=== PATIENT | female | born 1945 | race Caucasian/White ===

== ENCOUNTER 2018-05-25 14:13 | Emergency (ER) | payer MEDICARE, MEDICAID ==
[~2018-05-25] VITALS: Ht 170.2 cm; Wt 124.0 kg
[~2018-05-25 14:13] MED LIST: ASPI-10 PO; BENZ1TAB7 PO; COU1T; ESCI20TA PO; GLIM4TAB79 PO; HAL5T PO; HALO5TAB PO; LANS30CA37 PO; PIOG15TA8 PO; PROP20TA6 PO; QUET25TA PO; VALS40TA2 PO
[2018-05-25 14:17] VITALS: BP 191/88
[2018-05-25] MEDS ORDERED: MAGN400O6 PO (14:42)
[2018-05-25] MEDS ORDERED: DOCU-28 PO (14:42)
[2018-05-25] MEDS ORDERED: ASPI-1265 PO (14:42)
[2018-05-25] MEDS ORDERED: OMEP20CA10 PO (14:42)
[2018-05-25] MEDS ORDERED: METF500T PO (14:42)
[2018-05-25] MEDS ORDERED: morphine 4 MG/ML inj SYRINge IV ONE (15:05)
[2018-05-25] MEDS ORDERED: HYDROcodone/acetaminophen 10/325mg tab PO ONE (15:05)
[2018-05-25 15:07] LABS: BASOPHILS # (AUTO) 0.1 X10'3 (0-0.2); BASOPHILS % (AUTO) 0.9 % (0-1); EOSINOPHILS # (AUTO) 0.4 X10'3 (0-0.9); EOSINOPHILS % (AUTO) 5.3 % (0-6); HEMATOCRIT 41.6 % (35.0-45.0); HEMOGLOBIN 13.9 g/dl (12.0-16.0); LYMPHOCYTES # (AUTO) 2.2 X10'3 (1.1-4.8); LYMPHOCYTES % (AUTO) 31.8 % (21-51); MEAN CORPUSCULAR HEMOGLOBIN 29.4 PG (27.0-31.0); MEAN CORPUSCULAR HGB CONC 33.4 % (33.0-36.5); MEAN PLATELET VOLUME 7.7 FL (7.4-10.4); MONOCYTES # (AUTO) 0.6 X10'3 (0-0.9); MONOCYTES % (AUTO) 8.4 % (2-12); NEUTROPHILS # (AUTO) 3.7 X10'3 (1.8-7.7); NEUTROPHILS % (AUTO) 53.6 % (42-75); PLATELET COUNT 259 X10'3 (140-440); RED BLOOD COUNT 4.73 X10'6 (4.20-5.60); RED CELL DISTRIBUTION WIDTH 14.1 % (11.5-14.5); WHITE BLOOD COUNT 6.9 X10'3 (4.5-11.0)
[2018-05-25 15:13] LABS: ALANINE AMINOTRANSFERASE 16 U/L (12-78); ALBUMIN 3.2 G/DL (3.4-5.0); ALBUMIN/GLOBULIN RATIO 0.9 (1.1-1.5); ALKALINE PHOSPHATASE 98 IU/L (46-116); ANION GAP 5 (8-16); ASPARTATE AMINO TRANSFERASE 4 U/L (10-37); BILIRUBIN,TOTAL 0.4 MG/DL (0.1-1.0); BLOOD UREA NITROGEN 16 MG/DL (7-18); CALCIUM 9.9 MG/DL (8.5-10.1); CHLORIDE 95 MMOL/L (99-107); GLUCOSE 217 MG/DL (70-104); POTASSIUM 4.3 MMOL/L (3.5-5.1); SODIUM 129 MMOL/L (135-145); TOTAL CARBON DIOXIDE 28.8 MMOL/L (24-32); TOTAL PROTEIN 6.8 G/DL (6.4-8.2); eGFR 70 ML/MIN
[2018-05-25 15:22] LABS: MAGNESIUM 1.7 MG/DL (1.5-2.4)
== END 2018-05-25 17:06 | disposition home or self-care (01) ==
LOC: ER 14:13
DX: S16.1XXA Strain of muscle, fascia and tendon at neck level, initial encounter (principal); S09.90XA Unspecified injury of head, initial encounter; G20 Parkinson's disease; I48.91 Unspecified atrial fibrillation; I10 Essential (primary) hypertension; K21.9 Gastro-esophageal reflux disease without esophagitis; E11.9 Type 2 diabetes mellitus without complications; M19.90 Unspecified osteoarthritis, unspecified site; Z90.49 Acquired absence of other specified parts of digestive tract; Z88.0 Allergy status to penicillin; Z88.2 Allergy status to sulfonamides; Z88.8 Allergy status to other drugs, medicaments and biological substances; Z79.82 Long term (current) use of aspirin; W01.0XXA Fall on same level from slipping, tripping and stumbling without subsequent striking against object, initial encounter; Y93.89 Activity, other specified; Y92.091 Bathroom in other non-institutional residence as the place of occurrence of the external cause; Y99.8 Other external cause status
CPT/HCPCS: 36415; 70450; 71045; 72125; 80053; 83735; 83880; 84484; 85025; 93005; 99285; J2270

== ENCOUNTER 2022-03-19 08:41 | Day surgery (SDC) | payer MEDICARE, MEDICAID ==
[~2022-03-19] VITALS: Ht 167.6 cm; Wt 90.9 kg
[~2022-03-19 08:41] MED LIST changes: +ACET-1015 PO; -ASPI-10 PO; +ASPI-611 PO; -BENZ1TAB7 PO; +CARB15DR91 LEFT EAR; +CARB15DR91 RIGHT EAR; +CHOL20002 PO; -COU1T; +ESCI-8 PO; -ESCI20TA PO; -GLIM4TAB79 PO; -HAL5T PO; +KEP500T PO; +LACT1CAP65 PO; -LANS30CA37 PO; +LIDOcaine Viscous 15ml cup ONE; +LINA5TAB4 PO; +MIDAZolam 1 MG/ML 5ML VIAL ONE; +MIRA25TA PO; +MONT-40 PO; +PANT40TA54 PO; +PIOG15TA67 PO; -PIOG15TA8 PO; +POLY119P2 PO; -PROP20TA6 PO; +PROP60TA19 PO; -QUET25TA PO; +TRAM50TA2 PO; -VALS40TA2 PO; +fentaNYL/PF 50MCG/1 ML 2ML syringe ONE
[2022-03-19 08:55] VITALS: BP 169/94
[2022-03-19 09:43] VITALS: BP 148/97
[2022-03-19 09:53] VITALS: BP 157/92
[2022-03-19 10:03] VITALS: BP 157/68
[2022-03-19 10:13] VITALS: BP 162/89
== END 2022-03-19 10:20 | disposition home or self-care (01) ==
LOC: GI LAB 08:41
PROVIDERS: ATTEND Internal Medicine Gastroenterology
DX: K29.50 Unspecified chronic gastritis without bleeding (principal); K31.7 Polyp of stomach and duodenum; K44.9 Diaphragmatic hernia without obstruction or gangrene; K22.2 Esophageal obstruction
CPT/HCPCS: 43239; 43450; 99153; G0500; J2250; J3010; J7030; Z7512; 88305; 99152; A4620